=== PATIENT | female | born 1990 | race Caucasian/White ===

== ENCOUNTER → 2023-09-23 14:24 | Outpatient (REF) | payer BC, SELFPAY | LOC: PNTC 14:24 | PROVIDERS: ATTENDING PHYSICIAN Obstetrics & Gynecology | DX: Z36.0 Encounter for antenatal screening for chromosomal anomalies (principal); Z36.82 Encounter for antenatal screening for nuchal translucency; Z34.90 Encounter for supervision of normal pregnancy, unspecified, unspecified trimester | CPT/HCPCS: 76801; 76813 ==

== ENCOUNTER → 2023-10-15 06:54 | Outpatient (REF) | payer SELFPAY | LOC: PNTC 06:54 | PROVIDERS: ATTENDING PHYSICIAN Obstetrics & Gynecology | DX: O16.9 Unspecified maternal hypertension, unspecified trimester (principal) | CPT/HCPCS: 76805 ==

== ENCOUNTER → 2023-11-11 14:47 | Outpatient (REF) | payer BC, SELFPAY | LOC: PNTC 14:47 | PROVIDERS: ATTENDING PHYSICIAN Obstetrics & Gynecology | DX: O10.119 Pre-existing hypertensive heart disease complicating pregnancy, unspecified trimester (principal) | CPT/HCPCS: 76811 ==

== ENCOUNTER → 2023-12-09 14:47 | Outpatient (REF) | payer BC, SELFPAY | LOC: PNTC 14:47 | PROVIDERS: ATTENDING PHYSICIAN Obstetrics & Gynecology | DX: O16.9 Unspecified maternal hypertension, unspecified trimester (principal) | CPT/HCPCS: 76816 ==

== ENCOUNTER → 2024-01-20 14:29 | Outpatient (REF) | payer BC, SELFPAY | LOC: PNTC 14:29 | PROVIDERS: ATTENDING PHYSICIAN Obstetrics & Gynecology | DX: O10.119 Pre-existing hypertensive heart disease complicating pregnancy, unspecified trimester (principal) | CPT/HCPCS: 76816 ==

== ENCOUNTER → 2024-02-03 16:39 | Outpatient (REF) | payer BC, SELFPAY | LOC: PNTC 16:39 | PROVIDERS: ATTENDING PHYSICIAN Obstetrics & Gynecology | DX: O10.119 Pre-existing hypertensive heart disease complicating pregnancy, unspecified trimester (principal) | CPT/HCPCS: 59025; 76816 ==

== ENCOUNTER → 2024-02-11 15:14 | Outpatient (REF) | payer BC, SELFPAY | LOC: PNTC 15:14 | PROVIDERS: ATTENDING PHYSICIAN Obstetrics & Gynecology | DX: O10.119 Pre-existing hypertensive heart disease complicating pregnancy, unspecified trimester (principal) | CPT/HCPCS: 59025; 76815 ==

== ENCOUNTER → 2024-02-18 14:47 | Outpatient (REF) | payer BC, SELFPAY | LOC: PNTC 14:47 | PROVIDERS: ATTENDING PHYSICIAN Obstetrics & Gynecology | DX: O10.019 Pre-existing essential hypertension complicating pregnancy, unspecified trimester (principal) | CPT/HCPCS: 59025; 76815 ==

== ENCOUNTER → 2024-03-03 17:06 | Outpatient (REF) | payer BC, SELFPAY | LOC: PNTC 17:06 | PROVIDERS: ATTENDING PHYSICIAN Obstetrics & Gynecology | DX: O10.119 Pre-existing hypertensive heart disease complicating pregnancy, unspecified trimester (principal) | CPT/HCPCS: 59025; 76816 ==

== ENCOUNTER 2024-03-16 07:54 | Inpatient (IN) | payer BC, SELFPAY ==
[2024-03-16 08:13] VITALS: BP 137/84; BMI 29.4
[2024-03-16] MEDS: LR 1000 IV ×2 (09:00→15:33)
[2024-03-16] MEDS: PITOCIN 30 UNITS/NSS 500 ML IV ×2 (09:48→16:37)
[2024-03-16 09:54] LABS: % Basophils 0.4 % (0-2); % Eosinophils 1.1 % (0-6); % Immature Granulocytes 1.2 % (0-0.5); % Lymphocytes 17.8 % (20.5-51.1); % Monocytes 7.3 % (1.7-9.3); % Neutrophils 72.2 % (42.2-75.2); Absolute Eosinophils 0.1 10^3/uL (0-0.7); Absolute Immature Granulocytes 0.1 10^3/uL (0-0.05); Absolute Lymphocytes 1.5 10^3/uL (1.2-3.4); Absolute Monocytes 0.6 10^3/uL (0.1-0.6); Absolute Neutrophils 6.1 10^3/uL (1.4-6.5); Hemoglobin 11.7 g/dL (12.0-16.0); Mean Corp Hgb Conc. 33.4 g/dL (33.0-37.0); Mean Corpuscular Hgb 26.1 pg (27.0-31.0); Mean Platelet Volume 10.7 fL (7.4-10.4); Nucleated Red Blood Cells % 0 %; Platelet Count 158 10^3/uL (130-400); Red Blood Cell Count 4.49 10^6/uL (4.20-5.40); Red Cell Dist. Width 15.6 % (11.5-14.5); White Blood Cell Count 8.5 10^3/uL (4.8-10.8)
[2024-03-16] MEDS: SUBLIMAZE 100 MCG EPIDURAL (15:11)
[2024-03-16] MEDS: FENTANYL/BUPIVACAINE 100 EPIDURAL (15:11)
[2024-03-16] MEDS: BENADRYL 25 MG PO (20:50)
[2024-03-16] MEDS: MOTRIN 600 MG PO (21:47)
[2024-03-17] MEDS: TYLENOL 650 MG PO (02:46)
[2024-03-17] MEDS: MOTRIN 600 MG PO (06:28)
[2024-03-17 06:46] LABS: Hematocrit 34.4 % (37.0-47.0); Hemoglobin 11.8 g/dL (12.0-16.0)
[2024-03-17] MEDS: PRISTIQ 100 MG PO (09:15)
[2024-03-17] MEDS: PRENATAL PLUS 1 TABLET PO (09:15)
[2024-03-17] MEDS: PROTONIX 40 MG PO (09:16)
[2024-03-17] MEDS: SENOKOT-S 1 TABLET PO (09:16)
[2024-03-17 15:31] LABS: Syphilis/T. pallidum Ab Reflex Negative (Negative)
== END 2024-03-17 17:02 | disposition home or self-care (01) | DRG 807 ==
LOC: LDRP 07:54
PROVIDERS: ADMITTING PHYSICIAN Obstetrics & Gynecology
PROC: 10E0XZZ Delivery of Products of Conception, External Approach (ICD-10-PCS; 2024-03-16)
PROC: 10907ZC Drainage of Amniotic Fluid, Therapeutic from Products of Conception, Via Natural or Artificial Opening (ICD-10-PCS; 2024-03-16)
PROC: 3E033VJ Introduction of Other Hormone into Peripheral Vein, Percutaneous Approach (ICD-10-PCS; 2024-03-16)
DX: O10.02 Pre-existing essential hypertension complicating childbirth (principal); Z37.0 Single live birth; O76 Abnormality in fetal heart rate and rhythm complicating labor and delivery; Z3A.38 38 weeks gestation of pregnancy; O69.81X0 Labor and delivery complicated by cord around neck, without compression, not applicable or unspecified; O66.0 Obstructed labor due to shoulder dystocia
CPT/HCPCS: 85014; 85018; 85025; 86780; 86850; 86900; 86901